=== PATIENT | female | born 1990 | race Caucasian/White ===

== ENCOUNTER 2020-07-09 15:52 | Emergency (ER) | payer OTHER, MEDICAID, SELFPAY ==
[2020-07-09 15:55] VITALS: BP 113/32; PULSE 66; RESP 14; TEMP 36.7; O2SAT 98
[2020-07-09 16:21] LABS: INR 1.1 (0.9-1.3); Prothrombin Time 12.5 SECONDS (10.1-12.7)
[2020-07-09 16:24] LABS: PTT Partial Thromboplastin Tim 29 SECONDS (26.4-36.2)
[2020-07-09 16:25] LABS: Add Manual Diff / Slide Review NO; Alanine Aminotransferase 13 IU/L (<35); Albumin 4.6 g/dL (3.5-5.0); Albumin Globulin Ratio 1.6 (1.0-2.8); Alkaline Phosphatase 54 U/L (38-126); Aspartate Aminotransferase 25 IU/L (14-36); Basophils Absolute Auto 100 /uL (0-100); Basophils Percent Auto 0.4 % (0-2); Bilirubin Total 1.4 mg/dL (0.2-1.3); Blood Urea Nitrogen 9 mg/dL (7-17); Calcium 9.1 mg/dL (8.4-10.2); Carbon Dioxide 19 mmol/L (22-32); Chloride 108 mmol/L (98-107); Eosinophils Absolute Auto 0 /uL (0-450); Eosinophils Percent Auto 0.2 % (2-4); Estimated Glomerular Filt Rate > 60.0 mL/min (>60); Globulin 2.9 g/dL (1.7-4.1); Glucose 98 mg/dL (70-100); HEMOLYSIS 27 (0-50); Hematocrit 36.4 % (36-46); Hemoglobin 12.2 g/dL (12.0-16.0); Lymphocytes Absolute Auto 1300 /uL (1100-4500); Mean Corpuscular HGB Conc 33.5 % (30-36); Mean Corpuscular Hemoglobin 29.6 PG (26-34); Mean Corpuscular Volume 88.1 fL (80-100); Monocytes Absolute Auto 600 /uL (0-900); Monocytes Percent Auto 4.6 % (3-14); Neutrophils Absolute Auto 11400 /uL (1500-7000); Neutrophils Percent Auto 84.8 % (50-75); Platelet Count 244 X10^3/uL (150-400); Potassium 3.5 mmol/L (3.4-5.1); Red Blood Cell Count 4.14 X10^6/uL (4.0-5.2); Red Cell Distribution Width 13.5 % (11.6-14.8); Sodium 135 mmol/L (137-145); Total Protein 7.5 g/dL (6.3-8.2); White Blood Cell Count 13.5 X10^3/uL (4.5-11.0)
[2020-07-09 16:33] LABS: Pregnancy Test Serum,Qual Negative (Negative)
[2020-07-09 16:48] LABS: Bacteria Urine None Seen; WBC Urine None Seen (0-5/HPF)
[2020-07-09 16:49] LABS: Appearance Urine UA CLEAR; Bilirubin Urine UA NEGATIVE (NEGATIVE); Color Urine UA YELLOW; Glucose Urine UA NEGATIVE (Negative); Ketones Urine UA 1+ (NEGATIVE); Leukocyte Esterase Urine UA NEGATIVE (NEGATIVE); Nitrite Urine UA NEGATIVE (Negative); Occult Blood Urine UA 3+ (Negative); Protein Urine UA NEGATIVE (Negative); Specific Gravity Urine UA <=1.005 (1.000-1.035); Urobilinogen Urine UA 0.2 E.U./dL (0.2)
--- NOTE | 2020-07-09 16:57 | DI.US.S_ITS ---
PROCEDURE: US PELVIC COMPLETE INDICATIONS: MENORRHAGIA TECHNIQUE: Real-time scanning was performed of the pelvic organs, with image documentation. Additional endovaginal scanning was necessary due to incomplete visualization of the adnexal and endometrial structures by transabdominal scanning. COMPARISON: None. FINDINGS: Transabdominal scanning: Limited scanning through the kidneys shows no hydronephrosis. Trace amount of free fluid in the pelvis is considered physiologic. Endovaginal scanning: Uterus: Uterus is normal in size at 8.6 x 4.9 x 5.1 centimeter cm. The endometrium measures 5 mm in combined thickness. No uterine fibroid is identified. Ovaries: The ovaries are normal in size. The right ovary measures 2.6 x 1.6 x 2.3 centimeters. The left ovary measures 4.1 x 1.8 x 2.6 centimeters. A possible left ovarian hemorrhagic cyst measures 1.5 x 1.3 x 1.2 cm. IMPRESSION: No significant pelvic abnormality is identified. Dictated by: Rosas Powers M.D. on 07/09/2020 at 18:14 Approved by: Rosas Powers M.D. on 07/09/2020 at 18:19
--- NOTE | 2020-07-09 16:57 | ED.FEMALEGU ---
HPI - Female Genitourinary General Chief complaint: Vaginal Bleeding Stated complaint: Vaginal Bleeding Time Seen by Provider: 07/09/20 16:56 Source: patient and EMS Mode of arrival: EMS Limitations: no limitations History of Present Illness HPI Narrative: The patient developed severe right lower abdominal pain today, accompanied by heavy vaginal bleeding. She is a couple days early for her menstrual cycle. She is not on control pills. She was seen on [place] at a local clinic prior to coming here. HCG testing is negative. On exam a right lower quadrant mass was felt. She has a history of ovarian cyst, as well as severe cramping during his cycles. Cramping is generally in the left side, it was on the right side this time. She has no associated dysuria. She has no fever chills. She has no nausea, vomiting or diarrhea. She has no history of . She has had multiple prior ultrasounds. 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 She received Ativan and fentanyl prior to arrival from EMS. Related Data Home Medications Medication Instructions Recorded Confirmed No Known Home Medications 07/09/20 07/09/20 Allergies Allergy/AdvReac Type Severity Reaction Status Date / Time peanut Allergy Severe Anaphylaxis Verified 07/09/20 16:05 fluoxetine Allergy Unknown Verified 07/09/20 16:05 Review of Systems Constitutional Constitutional: Denies chills, Denies fever(s), Denies lethargy and Denies weakness ENT Ears, Nose, Mouth, and Throat: Denies sore throat Cardiovascular Cardiovascular: Denies chest pain and Denies dyspnea Respiratory Respiratory: Denies cough and Denies dyspnea Gastrointestinal Comments: Right lower quadrant tenderness is noted HPI. Genitourinary Comments: Heavy bleeding. See HPI. She is not . Musculoskeletal Comments: Mild low back pain. Integumentary/Breasts Skin/Breast: Denies pruritus, Denies erythema, Denies rash and Denies wounds Neurologic Neurologic: Denies weakness Patient History Medical History Menorrhagia (Acute) Ovarian cyst (Acute) Surgical History No history of previous surgery (Acute) tobacco type: cigarettes alcohol intake frequency: 0-2 drinks per day Substance Use Type: marijuana Exam Initial Vital Signs Initial Vital Signs: Vital Signs Temperature 98.1 F 07/09/20 15:55 Pulse Rate 66 07/09/20 15:55 Respiratory Rate 14 07/09/20 15:55 Blood Pressure 113/32 L 07/09/20 15:55 Pulse Oximetry 98 07/09/20 15:55 Const General: cooperative and well developed Nutritional Appearance: well nourished Resp Effort & Inspection: normal respiratory effort, able to speak in complete sentences and no respiratory distress Auscultation: clear to auscultation bilaterally, no rales, no rhonchi and no wheezes Cardio Rate: regular rate Rhythm: regular rhythm Heart Sounds: S1 normal, S2 normal, no click, no gallops, no murmurs and no rubs Pulses: normal peripheral pulses GI Other: Mild RLQ tenderness, with palpable mass. This may represent a loop of bowel. No distension. No guarding or rebound. No peritoneal signs. Back/Spine/Pelvis Back: No CVA tenderness Skin General: no rashes or lesions noted and No petechiae Neuro General: patient alert, patient oriented x3, gait normal and no focal motor deficits Speech: speech normal Extrem General: no calf tenderness Course Course Course Narrative: In addition to the medications given by EMS, I gave her Toradol. She is quite comfortable at this time. Pelvic ultrasound is normal. She has menometrorrhagia. She was discharged with the suggestion she follow-up with gynecology. Orders Ordered: ED Orders 07/09/20 15:55 Complete Blood Count AUTO DIFF Stat Comprehensive Metabolic Panel Stat Partial Thromboplastin Time Stat Test Serum,Qual Stat Prothrombin Time INR Stat Type and Screen Stat 07/09/20 16:45 Urinalysis and Microscopic Stat 07/09/20 16:57 US pelvic complete Stat Discontinued Medications Ketorolac Tromethamine (Toradol) 30 mg IV NOW ONE Stop: 07/09/20 17:15 Last Admin: 07/09/20 17:41 Dose: 30 mg Documented by: NKECHIESTER Vital Signs Vital signs: Vital Signs - 8 hr 07/09/20 15:55 Temperature 98.1 F Pulse Rate 66 Respiratory Rate 14 Blood Pressure 113/32 L Pulse Oximetry 98 MDM - Female Genitourinary Lab Data Result diagrams: 07/09/20 15:55 07/09/20 15:55 Labs: Lab Results 0807/09/20 07/09/20 Range/Units 15:55 15:55 15:55 WBC 13.5 H (4.5-11.0) X10^3/uL RBC 4.14 (4.0-5.2) X10^6/uL Hgb 12.2 (12.0-16.0) g/dL Hct 36.4 (36-46) % MCV 88.1 (80-100) fL MCH 29.6 (26-34) PG MCHC 33.5 (30-36) % RDW 13.5 (11.6-14.8) % Plt Count 244 (150-400) X10^3/uL Neut % (Auto) 84.8 H (50-75) % Lymph % (Auto) 10.0 L (25-40) % [place] % (Auto) 4.6 (3-14) % Eos % (Auto) 0.2 L (2-4) % Baso % (Auto) 0.4 (0-2) % Neut # (Auto) 93811 H (5183-4057) /uL Lymph # (Auto) 1300 (2051-1122) /uL [place] # (Auto) 600 (0-900) /uL Eos # (Auto) 0 (0-450) /uL Baso # (Auto) 100 (0-100) /uL PT 12.5 (10.1-12.7) SECONDS INR 1.1 (0.9-1.3) APTT 29 (26.4-36.2) SECONDS Sodium 135 L (137-145) mmol/L Potassium 3.5 (3.4-5.1) mmol/L Chloride 108 H (98-107) mmol/L Carbon Dioxide 19 L (22-32) mmol/L BUN 9 (7-17) mg/dL Creatinine 0.69 (0.52-1.04) mg/dL Estimated GFR > 60.0 (>60) mL/min BUN/Creatinine Ratio 13.0 (6-22) Glucose 98 (70-100) mg/dL Calcium 9.1 (8.4-10.2) mg/dL Total Bilirubin 1.4 H (0.2-1.3) mg/dL AST 25 (14-36) IU/L ALT 13 (<35) IU/L Alkaline Phosphatase 54 (38-126) U/L Total Protein 7.5 (6.3-8.2) g/dL Albumin 4.6 (3.5-5.0) g/dL Globulin 2.9 (1.7-4.1) g/dL Albumin/Globulin Ratio 1.6 (1.0-2.8) Serum , Qual (Negative) Urine Color Urine Appearance Urine pH (4.5-8.0) Ur Specific [place] (1.000-1.035) Urine Protein (Negative) Urine Glucose (UA) (Negative) g/dL Urine Ketones (NEGATIVE) Urine Occult Blood (Negative) Urine Nitrate (Negative) Urine Bilirubin (NEGATIVE) Urine Urobilinogen (0.2) E.U./dL Ur Leukocyte Esterase (NEGATIVE) Urine RBC (0-5/HPF) Urine WBC (0-5/HPF) Urine Bacteria (None) Ur Culture Indicated? Blood Type Antibody Screen 07/09/20 07/09/20 07/09/20 Range/Units 15:55 15:55 16:45 WBC (4.5-11.0) X10^3/uL RBC (4.0-5.2) X10^6/uL Hgb (12.0-16.0) g/dL Hct (36-46) % MCV (80-100) fL MCH (26-34) PG MCHC (30-36) % RDW (11.6-14.8) % Plt Count (150-400) X10^3/uL Neut % (Auto) (50-75) % Lymph % (Auto) (25-40) % [place] % (Auto) (3-14) % Eos % (Auto) (2-4) % Baso % (Auto) (0-2) % Neut # (Auto) (6528-9048) /uL Lymph # (Auto) (8656-4177) /uL [place] # (Auto) (0-900) /uL Eos # (Auto) (0-450) /uL Baso # (Auto) (0-100) /uL PT (10.1-12.7) SECONDS INR (0.9-1.3) APTT (26.4-36.2) SECONDS Sodium (137-145) mmol/L Potassium (3.4-5.1) mmol/L Chloride (98-107) mmol/L Carbon Dioxide (22-32) mmol/L BUN (7-17) mg/dL Creatinine (0.52-1.04) mg/dL Estimated GFR (>60) mL/min BUN/Creatinine Ratio (6-22) Glucose (70-100) mg/dL Calcium (8.4-10.2) mg/dL Total Bilirubin (0.2-1.3) mg/dL AST (14-36) IU/L ALT (<35) IU/L Alkaline Phosphatase (38-126) U/L Total Protein (6.3-8.2) g/dL Albumin (3.5-5.0) g/dL Globulin (1.7-4.1) g/dL Albumin/Globulin Ratio (1.0-2.8) Serum , Qual Negative (Negative) Urine Color Yellow Urine Appearance Clear Urine pH 7.0 (4.5-8.0) Ur Specific [place] <=1.005 (1.000-1.035) Urine Protein Negative (Negative) Urine Glucose (UA) Negative (Negative) g/dL Urine Ketones 1+ H (NEGATIVE) Urine Occult Blood 3+ H (Negative) Urine Nitrate Negative (Negative) Urine Bilirubin Negative (NEGATIVE) Urine Urobilinogen 0.2 (0.2) E.U./dL Ur Leukocyte Esterase Negative (NEGATIVE) Urine RBC 5-10/hpf H (0-5/HPF) Urine WBC None seen (0-5/HPF) Urine Bacteria None seen (None) Ur Culture Indicated? Cult not indicated Blood Type O Positive Antibody Screen Negative Discharge Plan Departure Patient Disposition: Home Clinical Impression: Menometrorrhagia Instructions: DI for Dysmenorrhea Activity Restrictions/Additional Instructions: Advil 2 tablets every 6 hours, start the medications a day or 2 before the particular onset of your menstrual cycle. Continue the medication for 1-2 days following the peak day of bleeding. I would recommend you see a service control operator about your problems with menstrual cycles. I will give you contact information for Dr. Harris, a service control operator with [facility] here in [place]. Prescriptions: No Action No Known Home Medications RF: 0 Referrals: Gertrude Harris MD [Physician] - Ivis Fonseca ARNP [Primary Care Provider] -
[2020-07-09 17:04] LABS: Culture Indicated Urine Cult Not Indicated; RBC Urine 5-10/HPF (0-5/HPF)
[2020-07-09] MEDS: KETOROLAC 60 MG/2 ML VIAL 30 MG IV (17:41)
[2020-07-09 18:57] VITALS: BP 114/55; PULSE 65; RESP 14; O2SAT 100
== END 2020-07-09 18:58 | disposition home or self-care (01) ==
PROVIDERS: Emergency Provider Emergency Medicine; PCP Nurse Practitioner Family
DX: N92.1 Excessive and frequent menstruation with irregular cycle (principal); R10.31 Right lower quadrant pain
CPT/HCPCS: 36415; 76856; 80053; 81001; 84703; 85025; 85610; 85730; 86850; 86900; 86901; 96374; 99284; J1885